=== PATIENT | male | born 1995 | race Caucasian/White ===

== ENCOUNTER 2017-08-13 19:39 | Emergency (ER) | payer BC ==
[2017-08-13] MEDS ORDERED: Ondansetron 4 MG Tab.DIS PO ONE (19:40)
[2017-08-13] MEDS ORDERED: Sodium Chloride 0.9% 1,000 ML IV ONE (19:44)
[2017-08-13] MEDS ORDERED: Ondansetron 4 MG/2 ML SDV IV ONE (19:52)
[2017-08-13] MEDS ORDERED: Acetaminophen 325 MG Tab PO ONE (19:52)
[2017-08-13 20:27] LABS: ANION GAP 11.5; CHLORIDE,CL 101 mmol/L (101-111); SODIUM,NA 137 mmol/L (135-145)
[2017-08-13] MEDS ORDERED: Morphine 2 MG/ML Syringe IVPUSH ONE (20:27)
[2017-08-13] MEDS ORDERED: Morphine 4 MG/ML Syringe ONE (20:35)
[2017-08-13] MEDS ORDERED: HYDROmorphone 0.5 MG/0.5 ML Syringe IVPUSH ONE ×2 (20:51→21:19)
--- NOTE | 2017-08-13 21:26 | EDM.PDOC ---
ED HPI GENERAL MEDICAL PROBLEM - General Chief Complaint: Headache Stated Complaint: MIGRAINE [id number] Time Seen by Provider: 08/13/17 20:20 Source of Information: Reports: Patient, Family History Limitations: Reports: No Limitations - History of Present Illness INITIAL COMMENTS - FREE TEXT/NARRATIVE: woke with severe headache this am , light sensitive. , nausea. Denies neck stiffness. Unsure if fevers. Tried ibuprofen one time without relief this am. Hx of mild occasional headache but have always been relieved with ibuprofen. Mild sore throat. No rash. Has been exposed to mosquitos and ticks. Onset: Today Duration: Constant Location: Reports: Head. 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 [No Known Home Meds] 03/25/13 [History] Past Medical History - Past Health History Medical/Surgical History: Denies Medical/Surgical History - Past Surgical History Musculoskeletal Surgical History: Reports: Other (See Below) Other Musculoskeletal Surgeries/Procedures:: broken arm requiring surgery X2. Social & Family History - Family History Family Medical History: Noncontributory - Tobacco Use Smoking Status *Q: Never Smoker Second Hand Smoke Exposure: No - Caffeine Use Caffeine Use: Reports: Soda - Recreational Drug Use Recreational Drug Use: No ED ROS GENERAL - Review of Systems Review Of Systems: See Below Constitutional: Reports: Fever, Malaise HEENT: Reports: Throat Pain Respiratory: Reports: No Symptoms. Denies: Shortness of Breath, Wheezing, Pleuritic Chest Pain Cardiovascular: Reports: No Symptoms, Chest Pain, Blood Pressure Problem, Claudication, Orthopnea Endocrine: Reports: No Symptoms, Polydypsia, Polyuria GI/Abdominal: Reports: No Symptoms, Nausea : Reports: Incontinence Musculoskeletal: Reports: No Symptoms Skin: Reports: No Symptoms Neurological: Reports: Headache Psychiatric: Reports: No Symptoms Immunologic: Reports: No Symptoms - Physical Exam Exam: See Below Exam Limited By: No Limitations General Appearance: Alert, Mild Distress Eye Exam: Bilateral Eye: EOMI, Normal Inspection, PERRL Ears: Normal External Exam, Normal TMs Nose: Normal Inspection Throat/Mouth: Normal Inspection, Inflammation (minimal posterior pharnyx, no exudate) Head Exam: Atraumatic, Normocephalic Neck: Normal Inspection, Supple, Non-Tender, Full Range of Motion, Other (no nuccal ridgidty, no change in headache with movement) Respiratory/Chest: No Respiratory Distress, Lungs Clear Cardiovascular: Normal Peripheral Pulses, Regular Rate, Rhythm GI/Abdominal: Normal Bowel Sounds, Soft, Non-Tender Neuro Exam (Abbreviated): Alert, Oriented, Normal Cognition, Normal Gait, Normal Reflexes Back Exam: Normal Inspection, Full Range of Motion. No: CVA Tenderness (R), Decreased Range of Motion Extremities: Normal Inspection, Normal Range of Motion Psychiatric: Normal Affect Skin Exam: Warm, Dry, Intact, Normal Color Course - Vital Signs Last Recorded V/S: Last Vital Signs Temp 99.8 F 08/13/17 21:25 Pulse 94 08/13/17 20:20 Resp 16 08/13/17 20:20 BP 153/86 H 08/13/17 20:20 Pulse Ox 97 08/13/17 20:20 - Orders/Labs/Meds Labs: Laboratory Tests 08/13/17 08/13/17 08/13/17 Range/Units 19:50 19:55 19:55 WBC 14.7 H (5.0-10.0) 10^3/uL RBC 5.03 (4.6-6.2) 10^6/uL Hgb 14.8 (14.0-18.0) g/dL Hct 42.8 (40.0-54.0) % MCV 85.1 (80-100) fL MCH 29.4 (27.0-34.0) pg MCHC 34.6 (33.0-35.0) g/dL Plt Count 241 (150-450) 10^3/uL Neut % (Auto) 69.9 (42.2-75.2) % Lymph % (Auto) 16.0 L (20.5-50.1) % [place] % (Auto) 10.9 H (2-8) % Eos % (Auto) 3.0 (1.0-3.0) % Baso % (Auto) 0.2 (0.0-1.0) % Sodium 137 (135-145) mmol/L Potassium 3.5 L (3.6-5.0) mmol/L Chloride 101 (101-111) mmol/L Carbon Dioxide 28.0 (21.0-31.0) mmol/L Anion Gap 11.5 BUN 19 H (7-18) mg/dL Creatinine 1.0 (0.6-1.3) mg/dL Est Cr Clr Drug Dosing 130.41 mL/min Estimated GFR (MDRD) > 60 BUN/Creatinine Ratio 19.00 Glucose 95 (74-105) mg/dL Lactic Acid (0.5-2.2) mmol/L Calcium 9.2 (8.4-10.2) mg/dl Total Bilirubin 0.5 (0.2-1.0) mg/dL AST 20 (10-42) IU/L ALT 19 (10-60) IU/L Alkaline Phosphatase 52 (42-121) IU/L Total Protein 7.5 (6.7-8.2) g/dl Albumin 4.6 (3.2-5.5) g/dl Globulin 2.9 Albumin/Globulin Ratio 1.59 Urine Color (YELLOW) Urine Appearance (CLEAR) Urine pH (5.0-9.0) Ur Specific [place] (1.005-1.030) Urine Protein (NEGATIVE) Urine Glucose (UA) (NEGATIVE) Urine Ketones (NEGATIVE) Urine Occult Blood (NEGATIVE) Urine Nitrite (NEGATIVE) Urine Bilirubin (NEGATIVE) Urine Urobilinogen (0.2-1.0) mg/dL Ur Leukocyte Esterase (NEGATIVE) Urine RBC /HPF Urine WBC (0-5/HPF) /HPF Ur Epithelial Cells /HPF Urine Bacteria (0-FEW/HPF) /HPF Monoscreen Negative 08/13/17 08/13/17 Range/Units 19:55 21:13 WBC (5.0-10.0) 10^3/uL RBC (4.6-6.2) 10^6/uL Hgb (14.0-18.0) g/dL Hct (40.0-54.0) % MCV (80-100) fL MCH (27.0-34.0) pg MCHC (33.0-35.0) g/dL Plt Count (150-450) 10^3/uL Neut % (Auto) (42.2-75.2) % Lymph % (Auto) (20.5-50.1) % [place] % (Auto) (2-8) % Eos % (Auto) (1.0-3.0) % Baso % (Auto) (0.0-1.0) % Sodium (135-145) mmol/L Potassium (3.6-5.0) mmol/L Chloride (101-111) mmol/L Carbon Dioxide (21.0-31.0) mmol/L Anion Gap BUN (7-18) mg/dL Creatinine (0.6-1.3) mg/dL Est Cr Clr Drug Dosing mL/min Estimated GFR (MDRD) BUN/Creatinine Ratio Glucose (74-105) mg/dL Lactic Acid 0.7 (0.5-2.2) mmol/L Calcium (8.4-10.2) mg/dl Total Bilirubin (0.2-1.0) mg/dL AST (10-42) IU/L ALT (10-60) IU/L Alkaline Phosphatase (42-121) IU/L Total Protein (6.7-8.2) g/dl Albumin (3.2-5.5) g/dl Globulin Albumin/Globulin Ratio Urine Color Yellow (YELLOW) Urine Appearance Clear (CLEAR) Urine pH 7.5 (5.0-9.0) Ur Specific [place] 1.010 (1.005-1.030) Urine Protein Negative (NEGATIVE) Urine Glucose (UA) Negative (NEGATIVE) Urine Ketones Negative (NEGATIVE) Urine Occult Blood Trace-intact H (NEGATIVE) Urine Nitrite Negative (NEGATIVE) Urine Bilirubin Negative (NEGATIVE) Urine Urobilinogen 0.2 (0.2-1.0) mg/dL Ur Leukocyte Esterase Negative (NEGATIVE) Urine RBC Not seen /HPF Urine WBC 0-5 (0-5/HPF) /HPF Ur Epithelial Cells Rare /HPF Urine Bacteria Rare (0-FEW/HPF) /HPF Monoscreen Meds: Medications Discontinued Medications Generic Name Dose Route Start Last Admin Trade Name Freq PRN Reason Stop Dose Admin Acetaminophen 650 mg 08/13/17 19:52 08/13/17 20:02 Tylenol PO 08/13/17 19:53 650 mg NOW ONE Administration Hydromorphone HCl 1 mg 08/13/17 20:51 08/13/17 21:27 Dilaudid IVPUSH 08/13/17 20:52 Not Given ONETIME ONE Hydromorphone HCl 0.5 mg 08/13/17 21:19 08/13/17 21:22 Dilaudid IVPUSH 08/13/17 21:20 0.5 mg ONETIME ONE Administration Sodium Chloride 1,000 mls @ 250 mls/hr 08/13/17 19:44 08/13/17 20:02 Normal Saline IV 08/13/17 23:43 250 mls/hr .BOLUS ONE Administration Ketorolac Tromethamine 30 mg 08/13/17 21:46 08/13/17 21:58 Toradol IVPUSH 08/13/17 21:47 30 mg ONETIME ONE Administration Morphine Sulfate 2 mg 08/13/17 20:27 08/13/17 20:37 Morphine IVPUSH 08/13/17 20:28 2 mg ONETIME ONE Administration Morphine Sulfate Confirm 08/13/17 20:35 08/13/17 20:39 Morphine Administered 08/13/17 20:36 Not Given Dose 4 mg .ROUTE .STK-MED ONE Ondansetron HCl 4 mg 08/13/17 19:52 08/13/17 20:02 Zofran IV 08/13/17 19:53 4 mg ONETIME ONE Administration Ondansetron HCl Confirm 08/13/17 22:42 Zofran Odt Administered 08/13/17 22:43 Dose 12 mg .ROUTE .STK-MED ONE - Re-Assessments/Exams Free Text/Narrative Re-Assessment/Exam: Discussed lab and CT results with Mother including need for follow up with PCP for MRI. . Patient intermittent playing on phone or on robert edge 08/14/17 06:20 Departure - Departure Time of Disposition: 22:33 Disposition: Home, Self-Care 01 Condition: Good Clinical Impression: Headache Qualifiers: Headache type: unspecified Headache chronicity pattern: acute headache Intractability: not intractable Qualified Code(s): R51 - Headache Pharyngitis Qualifiers: Pharyngitis/tonsillitis etiology: unspecified etiology Qualified Code(s): J02.9 - Acute pharyngitis, unspecified - Discharge Information Instructions: Dehydration, Adult, [id number], General Headache Without Cause , [id number] Referrals: PCP,Unobtain [Ordering Only Provider] - Forms: ED Department Discharge Additional Instructions: alternatate tylenol and ibuprofen for pain/ fever zofran ODT 4mg every 6 hours as needed for nausea Increase fluid intake follow up if symptoms worsen, Follow up with primary care to set up MRI
[2017-08-13] MEDS ORDERED: Ketorolac 30 MG/ML SDV IVPUSH ONE (21:46)
[2017-08-13] MEDS ORDERED: Ondansetron 4 MG Tab.DIS ONE (22:42)
== END 2017-08-13 22:52 | disposition home or self-care (01) ==
LOC: DL.ED 19:39
DX: J02.9 Acute pharyngitis, unspecified (principal)
CPT/HCPCS: 36415; 70450; 80053; 81001; 83605; 85025; 86308; 86618; 86788; 87040; 87081; 87430; 87804; 96361; 96374; 96375; 99284; A9270; J1170; J1885; J2270; J2405; J7030

== ENCOUNTER 2019-10-14 05:46 | Day surgery (SDC) | payer BC, OTHER ==
[2019-10-14] MEDS ORDERED: fentaNYL 100 MCG/2 ML SDV IV ONE ×5 (05:47→07:03)
[2019-10-14] MEDS ORDERED: Midazolam 1 MG/ML 2 ML SDV IV ONE ×7 (05:47→07:01)
[2019-10-14] MEDS ORDERED: fentaNYL 100 MCG/2 ML SDV ONE (06:26)
[2019-10-14] MEDS ORDERED: Midazolam 1 MG/ML 2 ML SDV ONE (06:26)
[2019-10-14] MEDS ORDERED: Dextrose 5%-0.45% NaCl 1,000 ML IV SCH (06:30)
--- NOTE | 2019-10-14 14:29 | OR ---
DATE: 10/14/2019 PROCEDURE: Total colonoscopy. INSTRUMENT USED: [id number] Olympus video colonoscope. PREMEDICATIONS: Fentanyl 150 mcg intravenous, Versed 4 mg intravenous. Nasal O2 cannula. The procedure was done under pulse oximetry, BP recording, and cardiac care unit nurse. INDICATION: The patient with progressive constipation, unexplained and not responsive to medical measures, also has related abdominal bloating and pain. Colonoscopic examination is done for detection of any polypoid lesions and removal, endoscopic hemostasis therapy if needed. DESCRIPTION OF PROCEDURE: Initial rectal exam was unremarkable. Rigid anoscopy was normal. The colonoscope was passed with ease up to the ileocecal area. Photographs were taken of the normal-appearing cecum identified by landmarks of appendiceal orifice and double-bulged ileocecal folds. No bleeding was noted from any of the visualized areas at the commencement of the examination. Bowel preparation was found to be adequate. [place] scale 2 in all the regions, total score 6. No stricture. No vascular ectasia. No large isolated ulcerations seen. No evidence of diffuse inflammatory bowel disease in the form of friability, contact bleeding, or ulcerations. No polyp or tumor mass was identified. Probing the proximal sides of folds and flexures using adequate distention and clearing up the stool material, withdrawal of the scope was made, cecum to rectum time over 6 minutes. No bleeding was noted from any of the visualized areas at the completion of examination. IMPRESSION: Normal study. The patient tolerated the procedure well. [facility] /[id number]
== END 2019-10-14 09:17 | disposition home or self-care (01) ==
LOC: DL.ENDO 05:46
PROVIDERS: ATTEND Internal Medicine Gastroenterology
DX: K59.00 Constipation, unspecified (principal); E66.09 Other obesity due to excess calories; K59.09 Other constipation; K62.5 Hemorrhage of anus and rectum; R10.9 Unspecified abdominal pain; R14.0 Abdominal distension (gaseous); F41.1 Generalized anxiety disorder; Z87.828 Personal history of other (healed) physical injury and trauma; Z98.890 Other specified postprocedural states; Z68.29 Body mass index [BMI] 29.0-29.9, adult
CPT/HCPCS: 45378; J2250; J3010; J7042